=== PATIENT | male | born 1995 | race American Indian/Alaskan Native ===

== ENCOUNTER 2018-04-02 15:14 | Emergency (ER) | payer OTHER ==
--- NOTE | 2018-04-02 16:46 | EDM.PDOC ---
<Beltran Lopez - Last Filed: 04/02/18 20:30> ED HPI GENERAL MEDICAL PROBLEM - General Chief Complaint: Skin Complaint Stated Complaint: [id number] BAD INFECTION ON LEG Time Seen by Provider: 04/02/18 16:45 - Related Data Allergies Allergy/AdvReac Type Severity Reaction Status Date / Time No Known Allergies Allergy Verified 04/02/18 19:05 Home Meds: Home Meds . [No Known Home Meds] 05/18/15 [History] ED EXAM, SKIN/RASH Location, Skin: Lower Extremity, Right Course - Vital Signs Last Recorded V/S: Last Vital Signs Temp 100.2 F 04/02/18 19:11 Pulse 88 04/02/18 19:11 Resp 18 04/02/18 19:11 BP 119/69 04/02/18 19:11 Pulse Ox 98 04/02/18 19:11 - Orders/Labs/Meds Orders: Active Orders 24 hr Category Date Time Status Peripheral IV Care [RC] . DIRECTED Care 04/02/18 18:36 Active CULTURE BLOOD [BC] Stat Lab 04/02/18 17:50 Received CULTURE WOUND [RM] Stat Lab 04/02/18 17:23 Received Peripheral IV Insertion Adult [OM.PC] Stat Oth 04/02/18 18:36 Ordered Labs: Laboratory Tests 04/02/18 04/02/18 Range/Units 17:50 17:50 WBC 21.1 H (5.0-10.0) 10^3/uL RBC 5.66 (4.6-6.2) 10^6/uL Hgb 16.4 (14.0-18.0) g/dL Hct 48.9 (40.0-54.0) % MCV 86.4 (80-100) fL MCH 29.0 (27.0-34.0) pg MCHC 33.5 (33.0-35.0) g/dL Plt Count 309 (150-450) 10^3/uL Neut % (Auto) 83.2 H (42.2-75.2) % Lymph % (Auto) 8.3 L (20.5-50.1) % Mcdonald % (Auto) 7.7 (2-8) % Eos % (Auto) 0.5 L (1.0-3.0) % Baso % (Auto) 0.3 (0.0-1.0) % Lactic Acid 1.7 (0.5-2.2) mmol/L Meds: Medications Discontinued Medications Generic Name Dose Route Start Last Admin Trade Name Delon PRN Reason Stop Dose Admin Hydrocodone Bitart/Acetaminophen 1 tab 04/02/18 16:53 [place] 325-5 Mg PO 04/02/18 16:54 ONETIME ONE Hydrocodone Bitart/Acetaminophen 1 tab 04/02/18 19:10 04/02/18 19:18 [place] 325-5 Mg PO 04/02/18 19:11 1 tab ONETIME ONE Administration Vancomycin HCl 1.5 gm/ Sodium 500 mls @ 334 mls/hr 04/02/18 18:36 04/02/18 19 :05 Chloride IV 04/02/18 20:05 334 mls/hr ONETIME ONE Administration Lidocaine HCl 30 ml 04/02/18 16:53 04/02/18 19:19 Xylocaine-Mpf 1% INJECT 04/02/18 16:54 3 ml ONETIME ONE Administration Sodium Chloride 10 ml 04/02/18 18:36 Saline Flush FLUSH ASDIRECTED PRN Keep Vein Open - Re-Assessments/Exams Free Text/Narrative Re-Assessment/Exam: 04/02/18 20:30 Patient care was transferred at shift change. The assessment and treatments were reviewed. I agree with previous documentation and treatment. Departure - Departure Time of Disposition: 20:31 Disposition: Home, Self-Care 01 Condition: Fair Clinical Impression: Abscess of right thigh - Discharge Information Instructions: Skin Abscess, Percutaneous Abscess Drain, Care After Referrals: PCP,None [Primary Care Provider] - Forms: ED Department Discharge Care Plan Goals: The patient was advised of the examination and lab results during the visit. The patient's abscess was incised and drained during the visit. The patient was given IV Vancomycin while in the ED. The patient was discharged with a script for Keflex #40 to take 1 by mouth 4 times per day for 10 days and Bactrim DS # 20 to take 1 by mouth 2 times per day for 10 days. If the patient has any additional symptoms or concerns, the patient should follow-up with his primary care facility or return to the emergency department. - My Orders Last 24 Hours: My Active Orders 04/02/18 17:23 CULTURE WOUND [RM] Stat 04/02/18 17:50 CULTURE BLOOD [BC] Stat 04/02/18 18:36 Peripheral IV Care [RC] . DIRECTED Peripheral IV Insertion Adult [OM.PC] Stat - Assessment/Plan Last 24 Hours: My Active Orders 04/02/18 17:23 CULTURE WOUND [RM] Stat 04/02/18 17:50 CULTURE BLOOD [BC] Stat 04/02/18 18:36 Peripheral IV Care [RC] . DIRECTED Peripheral IV Insertion Adult [OM.PC] Stat <Willa Holman - Last Filed: 04/03/18 07:11> ED HPI GENERAL MEDICAL PROBLEM - General Source of Information: Reports: Patient, RN, RN Notes Reviewed History Limitations: Reports: No Limitations - History of Present Illness INITIAL COMMENTS - FREE TEXT/NARRATIVE: Pt presents to the ER with c/o a boil on the back of the right thigh. He states his aunt and uncle tried to drain the area prior to coming in. Patient states he noticed the area a few days ago and the area has become larger and more painful. He admits to fever and chills. Denies N/V/D, chest pains, SOB. Onset: Gradual Right Posterior Leg Pain Score (Numeric/FACES): 8 Past Medical History - Past Health History Medical/Surgical History: Denies Medical/Surgical History Social & Family History - Tobacco Use Smoking Status *Q: Never Smoker - Caffeine Use Caffeine Use: Reports: Energy Drinks, Soda - Alcohol Use Days Per Week of Alcohol Use: 3 Number of Drinks Per Day: 5 Total Drinks Per Week: 15 - Recreational Drug Use Recreational Drug Use: Yes Recreational Drug Type: Reports: Marijuana/Hashish ED ROS GENERAL - Review of Systems Review Of Systems: ROS reveals no pertinent complaints other than HPI. ED EXAM, SKIN/RASH Exam: See Below Exam Limited By: No Limitations General Appearance: Alert, WD/WN, Mild Distress Eye Exam: Bilateral Eye: EOMI, Normal Inspection Ears: Normal External Exam, Hearing Grossly Normal Nose: Normal Inspection Throat/Mouth: Normal Inspection, Normal Voice, No Airway Compromise Head: Atraumatic, Normocephalic Neck: Normal Inspection, Full Range of Motion Respiratory/Chest: No Respiratory Distress, Lungs Clear, Normal Breath Sounds, No Accessory Muscle Use, Chest Non-Tender Cardiovascular: Normal Peripheral Pulses, Regular Rate, Rhythm, No Edema, No Gallop, No JVD, No Murmur, No Rub Peripheral Pulses: 2+: Radial (L), Radial (R) GI/Abdominal: Normal Bowel Sounds, Soft, Non-Tender (Male) Exam: Deferred Rectal (Males) Exam: Deferred Back Exam: Normal Inspection, Full Range of Motion Extremities: Normal Range of Motion, Normal Capillary Refill, Leg Pain (Back of right thigh under the buttock), Increased Warmth, Redness Neurological: Alert, Oriented, CN II-XII Intact, Normal Cognition, Normal Gait, Normal Reflexes, No Motor/Sensory Deficits Psychiatric: Normal Affect, Normal Mood, Anxious Skin: Warm, Dry, Erythema, Increased Warmth, Wound/Incision Location, Skin: Lower Extremity, Right Characteristics: Erythematous Associated features: Warmth, Tenderness, Swelling, Induration, Inflammation, Weeping Lymphatic: No Adenopathy ED SKIN PROCEDURES - I&D Site: Back of right thigh Local Anesthesia: Lidocaine: 1% Plain Local Anesthetic Volume: 3cc Area Incised With: 11 Blade Drainage: Purulent, Bloody, Small Amount Probed to Break Up Loculations: Yes Packed With: None Complications: No Course - Orders/Labs/Meds Orders: Active Orders 24 hr Category Date Time Status Peripheral IV Care [RC] . DIRECTED Care 04/02/18 18:36 Active CULTURE BLOOD [BC] Stat Lab 04/02/18 17:50 Received CULTURE WOUND [RM] Stat Lab 04/02/18 17:23 Received Peripheral IV Insertion Adult [OM.PC] Stat Oth 04/02/18 18:36 Ordered Labs: Laboratory Tests 04/02/18 04/02/18 Range/Units 17:50 17:50 WBC 21.1 H (5.0-10.0) 10^3/uL RBC 5.66 (4.6-6.2) 10^6/uL Hgb 16.4 (14.0-18.0) g/dL Hct 48.9 (40.0-54.0) % MCV 86.4 (80-100) fL MCH 29.0 (27.0-34.0) pg MCHC 33.5 (33.0-35.0) g/dL Plt Count 309 (150-450) 10^3/uL Neut % (Auto) 83.2 H (42.2-75.2) % Lymph % (Auto) 8.3 L (20.5-50.1) % Mcdonald % (Auto) 7.7 (2-8) % Eos % (Auto) 0.5 L (1.0-3.0) % Baso % (Auto) 0.3 (0.0-1.0) % Lactic Acid 1.7 (0.5-2.2) mmol/L Meds: Medications Discontinued Medications Generic Name Dose Route Start Last Admin Trade Name Freq PRN Reason Stop Dose Admin Hydrocodone Bitart/Acetaminophen 1 tab 04/02/18 16:53 [place] 325-5 Mg PO 04/02/18 16:54 ONETIME ONE Hydrocodone Bitart/Acetaminophen 1 tab 04/02/18 19:10 04/02/18 19:18 [place] 325-5 Mg PO 04/02/18 19:11 1 tab ONETIME ONE Administration Vancomycin HCl 1.5 gm/ Sodium 500 mls @ 334 mls/hr 04/02/18 18:36 04/02/18 19 :05 Chloride IV 04/02/18 20:05 334 mls/hr ONETIME ONE Administration Lidocaine HCl 30 ml 04/02/18 16:53 04/02/18 19:19 Xylocaine-Mpf 1% INJECT 04/02/18 16:54 3 ml ONETIME ONE Administration Sodium Chloride 10 ml 04/02/18 18:36 Saline Flush FLUSH ASDIRECTED PRN Keep Vein Open - My Orders Last 24 Hours: My Active Orders 04/02/18 17:23 CULTURE WOUND [RM] Stat 04/02/18 17:50 CULTURE BLOOD [BC] Stat 04/02/18 18:36 Peripheral IV Care [RC] . DIRECTED Peripheral IV Insertion Adult [OM.PC] Stat - Assessment/Plan Last 24 Hours: My Active Orders 04/02/18 17:23 CULTURE WOUND [RM] Stat 04/02/18 17:50 CULTURE BLOOD [BC] Stat 04/02/18 18:36 Peripheral IV Care [RC] . DIRECTED Peripheral IV Insertion Adult [OM.PC] Stat
[2018-04-02] MEDS ORDERED: Lidocaine 1% 30 ML SDV INJECT ONE (16:53)
[2018-04-02] MEDS ORDERED: Acetaminophen/HYDROcodone 325-5 MG Tab PO ONE ×2 (16:53→19:10)
[2018-04-02] MEDS ORDERED: Vancomycin 1.5 GM in Sodium Chloride 0.9% 500 ML IV ONE (18:36)
[2018-04-02] MEDS ORDERED: Sodium Chloride 0.9% 10 ML Syringe FLUSH PRN (18:36)
[2018-04-02 19:12] VITALS: BP 119/69
== END 2018-04-02 20:47 | disposition home or self-care (01) ==
LOC: DL.ED 15:14
DX: L02.415 Cutaneous abscess of right lower limb (principal)
CPT/HCPCS: 10060; 36415; 83605; 85025; 87040; 87070; 87077; 87186; 96365; 99283; A9270; J3370; J7040; 10061

== ENCOUNTER 2020-09-20 13:22 | Emergency (ER) | payer OTHER ==
[2020-09-20 13:47] VITALS: BP 133/82; PULSE 106
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
[2020-09-20] MEDS ORDERED: prednisoLONE Acetate 1% Ophth Susp 5 ML Bottle EYERT ONE (14:32)
[2020-09-20] MEDS ORDERED: Gentamicin 0.3% Ophth Soln 5 ML Bottle EYERT ONE (14:34)
[2020-09-20] MEDS ORDERED: Tetracaine HCl/PF 0.5% 4 ML Bottle EYERT ONE (14:35)
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
[2020-09-20] MEDS ORDERED: Ondansetron 4 MG Tab.DIS PO ONE (15:08)
[2020-09-20] MEDS ORDERED: Sodium Chloride 0.9% 10 ML Syringe FLUSH PRN (15:11)
[2020-09-20] MEDS ORDERED: ceFAZolin 1 GM in Premix Bag 1 BAG IV ONE (15:11)
[2020-09-20] MEDS ORDERED: HYDROmorphone 1 MG/ML Syringe IVPUSH ONE (15:11)
== END 2020-09-20 17:31 ==
LOC: DL.ED 13:22
DX: S02.2XXB Fracture of nasal bones, initial encounter for open fracture (principal); S02.31XB Fracture of orbital floor, right side, initial encounter for open fracture; S06.0X9A Concussion with loss of consciousness of unspecified duration, initial encounter; S00.531A Contusion of lip, initial encounter; F17.210 Nicotine dependence, cigarettes, uncomplicated; Y04.0XXA Assault by unarmed brawl or fight, initial encounter
CPT/HCPCS: 70450; 70486; 72125; 96365; 96375; 99285; A9270; J0690; J1170; 99284

== ENCOUNTER 2025-02-09 18:01 | Emergency (ER) | payer OTHER ==
[2025-02-09 18:21] VITALS: BP 141/71; PULSE 58
[2025-02-09] MEDS: cefTRIAXone 1 GM, Lidocaine 1% 2.1 ML IM ONE (18:30)
[2025-02-09] MEDS: Oxymetazoline 0.05% Nasal Spray 30 ML Bottle NAS ONE (18:36)
== END 2025-02-09 18:36 | disposition home or self-care (01) ==
LOC: DL.ED 18:01
DX: H66.002 Acute suppurative otitis media without spontaneous rupture of ear drum, left ear (principal); Z86.16 Personal history of COVID-19
CPT/HCPCS: 99282; 99283; A9270; J0696; J2003